=== PATIENT | female | born 1965 | race Caucasian/White ===

== ENCOUNTER → 2024-02-09 06:36 | Outpatient (REF) | payer BC, SELFPAY | LOC: WDC 06:36 | PROVIDERS: ATTENDING PHYSICIAN Obstetrics & Gynecology Gynecology; FAMILY PHYSICIAN Nurse Practitioner Adult Health | DX: Z12.31 Encounter for screening mammogram for malignant neoplasm of breast (principal) | CPT/HCPCS: 77063; 77067 ==

== ENCOUNTER → 2025-02-13 06:39 | Outpatient (REF) | payer BC, SELFPAY | LOC: WDC 06:39 | PROVIDERS: ATTENDING PHYSICIAN Obstetrics & Gynecology Gynecology | DX: Z12.31 Encounter for screening mammogram for malignant neoplasm of breast (principal) | CPT/HCPCS: 77063; 77067 ==

== ENCOUNTER 2025-07-23 06:33 | Day surgery (SDC) | payer BC, SELFPAY | END 2025-07-23 13:00 | disposition home or self-care (01) | LOC: GI 06:33 | PROVIDERS: ATTENDING PHYSICIAN Internal Medicine Gastroenterology | DX: Z12.11 Encounter for screening for malignant neoplasm of colon (principal); K64.8 Other hemorrhoids; Z86.0100 Personal history of colon polyps, unspecified | CPT/HCPCS: G0105 ==

== ENCOUNTER 2025-11-12 09:09 | Emergency (ER) | payer BC, SELFPAY ==
[2025-11-12 09:13] VITALS: BP 153/74
--- NOTE | 2025-11-12 09:37 | ED.GENMED ---
History of Present Illness
<Lin Kay, [employer] - Last Filed: 11/13/25 19:49>
General
Chief Complaint: Abdominal Symptoms
Source: patient
Exam Limitations: none
Time Seen by Provider: 11/12/25 09:37
Nursing documentation reviewed up to this point in time: agreed with
History of Present Illness
History of Present Illness:
60-year-old female with history of cholecystectomy, on Wegovy for the past 2 years, hypothyroid, depression presentswith appetite loss persisting for approximately 6 days, during which she reports consuming minimal food, such as a bagel and toast.
She experiences right upper back 'aching' pain, which is constant but not severe, rating it as a 4 on a pain scale of 0 to 10. Associated symptoms include nausea, extreme fatigue, and intermittent loose, bright yellow, stools 'that float,'
She denies fever, chest pain or trouble breathing, and urinary symptoms such as burning, frequency, or urgency. She reports cramping in the abdomen but no severe or constant belly pain. The back pain does not prevent her from daily activities but is
notably persistent.
Past History
<Lin Kay, [employer] - Last Filed: 11/13/25 19:49>
Past History
ED Past Medical History: NIDDM, Hypothyroidism and Psychiatric (Depression)
ED Past Surgical History: Cholecystectomy and
Social History
Tobacco: Non-smoker
Alcohol: Occasional
Personal:
Living: with family
Employment: Employed
Review of Systems
<Lin Kay, [employer] - Last Filed: 11/13/25 19:49>
Review of Systems
Allergies reviewed?: Yes
All Other Systems: ROS reviewed and negative except as documented in HPI and ROS
Phy Exam
<Lin Kay, [employer] - Last Filed: 11/13/25 19:49>
Physical Exam
Physical Exam:
GENERAL: No acute distress. A&Ox3.
CONSTITUTIONAL: Afebrile.
EYES: clear, conjunctivae normal
ENMT: moist mucus membranes, Pharynx nl
RESPIRATORY: Regular respirations, nonlabored, lungs clear.
CARDIOVASCULAR: Regular rate and rhythm, no murmurs, no rubs.
GI: Soft, nontender, normal BS
MUSCULOSKELETAL: Moves with ease. Well perfused.
SKIN: Warm, dry, pink
PSYCH: Normal mood and affect. Well kept, interactive and appropriate
NEUROLOGIC: Awake, alert and oriented. No focal neurological deficits
Course
<Lin Kay, [employer] - Last Filed: 11/13/25 19:49>
Orders/Labs/Results
Orders:
Orders
11/12/25 09:56
Complete Blood Count/With Diff Urgent
Comprehensive Metabolic Panel Urgent
Lipase Urgent
Urinalysis Reflex To Culture Urgent
Date Specimen was Collected: 11/12/25
Time Specimen was Collected: 09:50
Urine Microscopic Reflex Cult Urgent
Urine Culture Urgent
NYDIA Source: U
Specimen Description:
Date Specimen was Collected: 11/12/25
Time Specimen was Collected: 09:50
11/12/25 11:54
US Abdomen Complete/Upper Urgent
Comment:
Reason For Exam: yellow stools, R upper back pain, wt loss
11/12/25 13:16
CT Abd/Pel (IV only)-DH only Urgent
Comment:
Reason For Exam: back pain, yellow stools, 7 lb loss of wt
Abnormal Lab Results
11/12/25
09:56
Ur Occult Blood Reflex 1+ A
(Negative)
Leukocyte Esterase Rfl 1+ A
(Negative)
Urine Bacteria (Reflex) Few A
(Negative)
Urine Albumin (Reflex) 2+ A
(Neg - Trace)
11/12/25 09:56
11/12/25 09:56
Vital Signs
Initial and Last Documented VS:
Initial Vital Signs
Temp Pulse Resp BP Pulse Ox
98.2 F 80 16 153/74 98
11/12/25 09:13 11/12/25 09:13 11/12/25 09:13 11/12/25 09:13 11/12/25 09:13
Last Documented Vital Signs
Temp Pulse Resp BP Pulse Ox
98.5 F 66 18 140/78 96
11/12/25 12:14 11/12/25 17:57 11/12/25 17:57 11/12/25 17:57 11/12/25 17:57
<Sallie Castro PA-C - Last Filed: 11/12/25 19:11>
Orders/Labs/Results
Orders:
Orders
11/12/25 09:56
Complete Blood Count/With Diff Urgent
Comprehensive Metabolic Panel Urgent
Lipase Urgent
Urinalysis Reflex To Culture Urgent
Date Specimen was Collected: 11/12/25
Time Specimen was Collected: 09:50
Urine Microscopic Reflex Cult Urgent
Urine Culture Urgent
NYDIA Source: U
Specimen Description:
Date Specimen was Collected: 11/12/25
Time Specimen was Collected: 09:50
11/12/25 11:54
US Abdomen Complete/Upper Urgent
Comment:
Reason For Exam: yellow stools, R upper back pain, wt loss
11/12/25 13:16
CT Abd/Pel (IV only)-DH only Urgent
Comment:
Reason For Exam: back pain, yellow stools, 7 lb loss of wt
Abnormal Lab Results
11/12/25
09:56
Ur Occult Blood Reflex 1+ A
(Negative)
Leukocyte Esterase Rfl 1+ A
(Negative)
Urine Bacteria (Reflex) Few A
(Negative)
Urine Albumin (Reflex) 2+ A
(Neg - Trace)
11/12/25 09:56
11/12/25 09:56
Vital Signs
Initial and Last Documented VS:
Initial Vital Signs
Temp Pulse Resp BP Pulse Ox
98.2 F 80 16 153/74 98
11/12/25 09:13 11/12/25 09:13 11/12/25 09:13 11/12/25 09:13 11/12/25 09:13
Last Documented Vital Signs
Temp Pulse Resp BP Pulse Ox
98.5 F 66 18 140/78 96
11/12/25 12:14 11/12/25 17:57 11/12/25 17:57 11/12/25 17:57 11/12/25 17:57
<Lin Kay, [employer] - Last Filed: 11/13/25 19:49>
MDM/Problems Addressed
Differential Diagnosis Includes:
Pancreatitis, gallbladder ductal stone, kidney stone, hepatitis A
MDM/Problems Addressed:
60-year-old female with history of cholecystectomy, on Wegovy for the past 2 years, hypothyroid, depression presents with appetite loss persisting for approximately 6 days, during which she reports consuming minimal food, such as a bagel and toast.
She experiences right upper back 'aching' pain, which is constant but not severe, rating it as a 4 on a pain scale of 0 to 10. Associated symptoms include nausea, extreme fatigue, and intermittent loose, bright yellow, stools 'that float,' and 7 lb
weight loss in 6 days
She denies fever, chest pain or trouble breathing, and urinary symptoms such as burning, frequency, or urgency. She reports cramping in the abdomen but no severe or constant belly pain. The back pain does not prevent her from daily activities but is
notably persistent
11:00 AM:
CBC normal
CMP normal
UA negative
Spoke with 'Chi' in lab, will cancel Hep testing as liver enzymes are normal
11:45 a.m.
Pt updated on results and plan, US pending
1:20 PM:
Ultrasound shows nothing abnormal
CT pending
Pt back from CT. Case discussed with Ziyad FISCHER who will assume care from this point. If CT shows nothing acute, DC with GI follow up.
<Lin Kay [employer] - Last Filed: 11/13/25 19:49>
*Pulse Oximetry
SaO2: 98
Oxygen Mode of Delivery: Room air
<Sallie Castro PA-C - Last Filed: 11/12/25 19:11>
*Pulse Oximetry
Patient hypoxic: no
*Critical Care Note
Total Time (30-74mins, 75-104mins- exclusive of procedures): Not Applicable
<Sallie Castro PA-C - Last Filed: 11/12/25 19:11>
Update Note
Update Note:
Update 5:30 PM: Assumed care of patient pending CT scan. CT scan without acute findings. Possible colitis versus underdistention of colon noted. I personally reviewed patient's workup which revealed normal labs, UA, and unremarkable abdominal
ultrasound. Patient appears well and in no distress on reassessment. Discussed findings at length with patient. Possible mild colitis however she is also on a GLP-1 which may be contributing to symptoms. However�no indication for admission to
hospital or evidence of acute intra-abdominal infectious process. I did send message to GI manager front office to expedite follow-up and also advised patient to discuss with her meat hostess who prescribes GLP-1. Advise bland diet, p.o. hydration.
Strict return precautions discussed with patient and her who are comfortable with plan.
ED Attending Note
<Lin Kay, [employer] - Last Filed: 11/13/25 19:49>
-
Portions of this chart may have been created with voice recognition software.� Occasional wrong word or��sound alike� substitutions may have occurred due to the inherent limitations of voice recognition software.
Discharge Plan
Departure
Patient Disposition: Home (Routine Discharge)
Date of Disposition: 11/12/25
Time of Disposition: 17:58
Patient with high blood pressure during this ER visit?: Yes
Condition: Good
Discharge Problem:
Anorexia, Bowel habit changes
Instructions: Dehydration, Adult (DC), [place] diet, BLOOD PRESSURE
Prescriptions:
No Action
prednisone 50 mg tablet
50 mg PO DAILY 4 Days Qty: 4 0RF
cetirizine [Zyrtec] 10 mg tablet
10 mg PO BID 4 Days Qty: 8 0RF
famotidine 40 mg tablet
40 mg PO DAILY 4 Days Qty: 4 0RF
epinephrine [EpiPen 2-Ike] 0.3 mg/0.3 mL auto-injector
0.3 mg IM ONCE Qty: 2 0RF
Referrals:
Rissa Bernstein CRNP [Family Provider, General]
Adele Gutierrez DO [Active, Gastroenterology] - Follow up in 1 week
Activity Restrictions/Additional Instructions:
RETURN TO THE EMERGENCY DEPARTMENT ANY FEVER, PERSISTENT/WORSENING ABDOMINAL PAIN, INTRACTABLE VOMITING, SIGNS OF SEVERE DEHYDRATION, WORSENING CURRENT SYMPTOMS, OR ANY OTHER CONCERNS
- As discussed your lab work and urinalysis showed no acute abnormalities today in the emergency department. An abdominal ultrasound and CT scan also were without acute findings.
- Please continue to stay well-hydrated at home. I would recommend a bland diet over the next few days.
- Please follow-up with your meat hostess to discuss your GLP-1 prescription. I did also reach out to the GI office in order to expedite an outpatient follow-up
Monitor your symptoms closely and return to the emergency department with any acute worsening/new symptoms or any other concerns
Interventions
Interventions:
*General Assessment Last Done: 11/12/25 10:04
*Neglect/Abuse Screening Last Done: 11/12/25 10:04
*ED COVID-19 Vaccine History Last Done: 11/12/25 10:04
*ED Influenza Vaccine History Last Done: 11/12/25 10:04
[facility] Fall Risk Assessment Tool Last Done: 11/12/25 09:09
*Risk Screen - Suicide (C-SSRS) Last Done: 11/12/25 10:04
*Nursing Disposition Last Done: 11/12/25 18:18
NF-Ftftbv-Jwmolnbkes Assessment Last Done: 11/12/25 10:04
Discharge Date and Time
Discharge Date/Time: 11/12/25 18:19
Print Language: IRISH
[2025-11-12 10:04] VITALS: BMI 32.8
[2025-11-12 10:20] LABS: Hematocrit 40.5 % (37.0-47.0); Hemoglobin 13.5 g/dL (12.0-16.0); Mean Corp Hgb Conc. 33.3 g/dL (33.0-37.0); Mean Corpuscular Volume 92.5 fL (81.0-99.0); Nucleated Red Blood Cells % 0 %; Platelet Count 341 10^3/uL (130-400); Red Cell Dist. Width 11.9 % (11.5-14.5)
[2025-11-12 10:27] LABS: Urine Character Clear (Clear)
[2025-11-12 10:36] LABS: ALT (SGPT) 22 U/L (0-35); AST (SGOT) 23 U/L (14-36); Albumin 4.2 g/dl (3.5-5.0); Alkaline Phosphatase 87 U/L (38-126); Blood Urea Nitrogen 11 mg/dl (7-17); Calcium 9.4 mg/dl (8.4-10.2); Carbon Dioxide 26 mmol/L (22-30); Chloride 104 mmol/L (98-107); Estimated Creatinine Clearance 75 ml/min; Glucose 92 mg/dl (70-99); Lipase 78 U/L (23-300); Potassium 4.1 mmol/L (3.5-5.1); Sodium 136 mmol/L (135-145); Total Protein 7.2 g/dl (6.3-8.2); eGFR > 60.00
[2025-11-12 10:43] LABS: Urine Squamous Cell >30 /LPF (Few)
[2025-11-12 10:46] LABS: Urine Red Blood Cell 0-2 /HPF (0-2)
[2025-11-12 12:14] VITALS: BP 139/76
[2025-11-12 17:57] VITALS: BP 140/78
== END 2025-11-12 18:19 | disposition home or self-care (01) ==
LOC: EMR 09:09
PROVIDERS: Registered Nurse; EMERGENCY PHYSICIAN Student in an Organized Health Care Education/Training Program; FAMILY PHYSICIAN Nurse Practitioner Adult Health
DX: R63.0 Anorexia (principal); R19.4 Change in bowel habit; E11.9 Type 2 diabetes mellitus without complications; E03.9 Hypothyroidism, unspecified; Z90.49 Acquired absence of other specified parts of digestive tract
CPT/HCPCS: 99284; 74177; 76700; 80053; 81003; 81015; 83690; 85025; 87086; Q9967